=== PATIENT | male | born 1970 | race Caucasian/White ===

== ENCOUNTER 2020-05-02 14:39 | Emergency (ER) | payer OTHER ==
[2020-05-02 14:48] VITALS: BP 115/76
[2020-05-02] MEDS ORDERED: IBUPROFEN 600 MG TAB PO ONE (16:56)
--- NOTE | 2020-05-02 17:36 | XRay Report ---
LEFT ANKLE 4 VIEW(S) INDICATION / CLINICAL INFORMATION: fall, laceration ankle, foot/ankle pain/edema COMPARISON: None available. FINDINGS: BONES / JOINT(S): No acute fracture or subluxation. Ankle mortise is intact. No significant arthritis . SOFT TISSUES: Mild diffuse edema about the ankle. No evidence of foreign object. ADDITIONAL FINDINGS: None. Signer Name: Christian Ascencio MD Signed: 05/02/2020 5:32 PM Workstation Name: [id number]
--- NOTE | 2020-05-02 17:41 | XRay Report ---
LEFT FOOT 3 VIEW(S) INDICATION / CLINICAL INFORMATION: fall, laceration ankle, foot/ankle pain/edema COMPARISON: None available. FINDINGS: BONES / JOINT(S): No acute fracture or subluxation. No significant arthritis. Small os peroneum ossic le. SOFT TISSUES: Mild ankle edema. ADDITIONAL FINDINGS: None. Signer Name: Christian Ascencio MD Signed: 05/02/2020 5:36 PM Workstation Name: [id number]
[2020-05-02] MEDS ORDERED: LIDOCAINE (1%) 10 MG/1 ML VIAL 20 ML MDV INFILTRATI ONE (18:23)
--- NOTE | 2020-05-02 18:23 | Emergency Department Report ---
- General Chief Complaint: Wound/Laceration Stated Complaint: LACERATION TO LEG Time Seen by Provider: 05/02/20 16:10 Source: patient, family Mode of arrival: Ambulatory Limitations: Language Barrier - History of Present Illness Initial Comments: pts significant other used for Divehi interpretation which the patient gave permission Patient is a 49-year-old male who presents emergency room with complaints of a left ankle injury that occurred last night at 9 PM. Patient states that he was walking down the steps and slipped and fell and cut himself against some bricks. He has not been ambulatory since the incident secondary to pain. He has associated left ankle and foot pain and swelling. He denies ever injuring in the past. He states his last tetanus immunization was last year. He denies any numbness or weakness. He denies any current bleeding. He denies any past medical history or allergies to medications. - Related Data Previous Rx's Medication Instructions Recorded Last Taken Type HYDROcodone/APAP 5-325 [[place] 1 each PO Q6HR PRN #10 tablet 05/02/20 Unknown Rx 5/325] Ibuprofen [Motrin 600 MG tab] 600 mg PO Q8H PRN #20 tablet 05/02/20 Unknown Rx Sulfamethoxazole/Trimethoprim 1 each PO BID 7 Days #14 tablet 05/02/20 Unknown Rx [Bactrim DS TAB] Allergies Allergy/AdvReac Type Severity Reaction Status Date / Time No Known Allergies Allergy Unverified 05/02/20 15:06 ED Review of Systems ROS: Stated complaint: LACERATION TO LEG Other details as noted in HPI Comment: All other systems reviewed and negative ED Past Medical Hx - Past Medical History Previous Medical History?: No - Surgical History Past Surgical History?: No - Social History Smoking Status: Never Smoker Substance Use Type: None - Medications Home Medications: Home Medications Medication Instructions Recorded Confirmed Last Taken Type HYDROcodone/APAP 5-325 [[place] 1 each PO Q6HR PRN #10 tablet 05/02/20 Unknown Rx 5/325] Ibuprofen [Motrin 600 MG tab] 600 mg PO Q8H PRN #20 tablet 05/02/20 Unknown Rx Sulfamethoxazole/Trimethoprim 1 each PO BID 7 Days #14 tablet 05/02/20 Unknown Rx [Bactrim DS TAB] ED Physical Exam - General Limitations: Language Barrier General appearance: alert, in no apparent distress - Head Head exam: Present: atraumatic, normocephalic - Eye Eye exam: Present: normal appearance - ENT ENT exam: Present: mucous membranes moist - Extremities Exam Extremities exam: Present: other (3 cm curved laceration present to the medial surface of the left ankle/foot adjacent to the malleolus, there is edema and ttp to the medial surface of the left ankle and foot, there is ecchymosis present, FROM of the left knee, ankle, foot, and toes with discomfort upon flexion and internal and external rotation, neurovascularly intact, no muscle/tendon involvement, no foreign body, no active bleeding, no obvious deformity) - Neurological Exam Neurological exam: Present: alert, oriented X3 - Psychiatric Psychiatric exam: Present: normal affect, normal mood - Skin Skin exam: Present: warm, dry ED Course Vital Signs 05/02/20 05/02/20 14:46 17:00 Temperature 98.3 F Pulse Rate 89 Respiratory 20 18 Rate Blood Pressure 115/76 O2 Sat by Pulse 98 Oximetry - Laceration /Wound Repair Left Medial Ankle Wound Location: lower extremity (left medial ankle) Wound Length (cm): 3 (curved shape) Wound's Depth, Shape: superficial Wound Explored: clean Irrigated w/ Saline (ccs): 500 Betadine Prep?: Yes Anesthesia: 1% Lidocaine Volume Anesthetic (ccs): 10 Wound Debrided: extensive Wound Repaired With: sutures Suture Size/Type: 3:0, proline Number of Sutures: 1 (one running simple suture) Layer Closure?: No Sterile Dressing Applied?: Yes Progress: Wound irrigated with saline and thoroughly scrubbed with Betadine, no muscle or tendon involvement, no foreign body, 10 cc of 1% lidocaine without epinephrine used as anesthetic, 3-0 Prolene used for skin closure, one simple running suture placed, patient tolerated well, no complications, bleeding controlled, sterile dressing applied ED Medical Decision Making - Radiology Data Radiology results: report reviewed LEFT FOOT 3 VIEW(S) INDICATION / CLINICAL INFORMATION: fall, laceration ankle, foot/ankle pain/edema COMPARISON: None available. FINDINGS: BONES / JOINT(S): No acute fracture or subluxation. No significant arthritis. Small os peroneum ossicle. SOFT TISSUES: Mild ankle edema. ADDITIONAL FINDINGS: None. Signer Name: Norman Ascencio MD Signed: 05/02/2020 5:36 PM Workstation Name: [id number] Transcribed By: Dictated By: NORMAN ASCENCIO III Electronically Authenticated By: NORMAN ASCENCIO III Signed Date/Time: 05/02/201735 DD/ 31 TD/TT: LEFT ANKLE 4 VIEW(S) INDICATION / CLINICAL INFORMATION: fall, laceration ankle, foot/ankle pain/edema COMPARISON: None available. FINDINGS: BONES / JOINT(S): No acute fracture or subluxation. Ankle mortise is intact. No significant arthritis. SOFT TISSUES: Mild diffuse edema about the ankle. No evidence of foreign object. ADDITIONAL FINDINGS: None. Signer Name: Norman Ascencio MD Signed: 05/02/2020 5:32 PM Workstation Name: [id number] Transcribed By: Dictated By: NORMAN ASCENCIO III Electronically Authenticated By: NORMAN ASCENCIO III Signed Date/Time: 05/02/201731 DD/ 29 TD/TT: - Medical Decision Making pts significant other used for Divehi interpretation which the patient gave permission Patient is a 49-year-old male who presents emergency room with complaints of a left ankle injury that occurred last night at 9 PM. Patient states that he was walking down the steps and slipped and fell and cut himself against some bricks. He has not been ambulatory since the incident secondary to pain. He has associated left ankle and foot pain and swelling. He denies ever injuring in the past. He states his last tetanus immunization was last year. He denies any numbness or weakness. He denies any current bleeding. He denies any past medical history or allergies to medications. VSS. on exam: 3 cm curved laceration present to the medial surface of the left ankle/foot adjacent to the malleolus, there is edema and ttp to the medial surface of the left ankle and foot, there is ecchymosis present, FROM of the left knee, ankle, foot, and toes with discomfort upon flexion and internal and external rotation, neurovascularly intact, no muscle/tendon involvement, no foreign body, no active bleeding, no obvious deformity. XR left foot: BONES / JOINT(S): No acute fracture or subluxation. No significant arthritis. Small os peroneum ossicle. SOFT TISSUES: Mild ankle edema. ADDITIONAL FINDINGS: None. XR left ankle: BONES / JOINT(S): No acute fracture or subluxation. Ankle mortise is intact. No significant arthritis. SOFT TISSUES: Mild diffuse edema about the ankle. No evidence of foreign object. ADDITIONAL FINDINGS: None. laceration repaired per procedure note with one simple running suture which can easily be removed if infection does occur, advised pt that he has a high risk of infection secondary to delayed closure. pt will be referred to orthopedic to r/o ligamentous injury, discussed the importance of follow up. pt placed in sterile dressing, ankle stirrup splint and crutches and remained neurovascularly intact. pt given prescription for norco, ibuprofen, and bactrim. advised pt Please take medication as prescribed. Do not drive or operate heavy machinery while taking pain medication. Please keep area clean, dry, covered. May wash with soap and water and pat dry. Sutures need to be removed in the next 14 days. No hot tub, no pool, no soaking in water. Please follow-up with orthopedic doctor in the next 2 to 3 days. It is very important that you follow-up. Please do not bear weight until you have seen the orthopedic doctor. Return to emergency room immediately for any new or worsening symptoms or any signs of infection. - Differential Diagnosis strain, sprain, fx, dislocation, laceration, contusion, effusion Critical care attestation.: If time is entered above; I have spent that time in minutes in the direct care of this critically ill patient, excluding procedure time. ED Disposition Clinical Impression: Edema of left ankle Laceration of left ankle Qualifiers: Encounter type: initial encounter Qualified Code(s): S91.012A - Laceration without foreign body, left ankle, initial encounter Left ankle sprain Qualifiers: Encounter type: initial encounter Involved ligament of ankle: unspecified ligament Qualified Code(s): S93.402A - Sprain of unspecified ligament of left ankle, initial encounter Disposition: TO HOME OR SELFCARE Is pt being admited?: No Does the pt Need Aspirin: No Condition: Stable Instructions: Ankle Sprain (ED), Suture Care (ED), Crutch Instructions (ED), Laceration (ED), Ankle Stirrup Splint (ED) Additional Instructions: Please take medication as prescribed. Do not drive or operate heavy machinery while taking pain medication. Please keep area clean, dry, covered. May wash with soap and water and pat dry. Sutures need to be removed in the next 14 days. No hot tub, no pool, no soaking in water. Please follow-up with orthopedic doctor in the next 2 to 3 days. It is very important that you follow-up. Please do not bear weight until you have seen the orthopedic doctor. Return to emergency room immediately for any new or worsening symptoms or any signs of infection. [place] los medicamentos segn lo prescrito. No conduzca ni maneje maquinaria pesada mientras est tomando analgsicos. Mantenga el vianney limpia, seca y cubierta. Puede lavarse con agua y jabn y secar. Las suturas deben retirarse en los prximos 14 quezada. Sin baera de hidromasaje, sin piscina, sin remojo en agua. Carlita un seguimiento con el mdico ortopdico en los prximos 2 a 3 quezada. Es muy importante que carlita un seguimiento. No cargue peso hasta que haya visto al mdico ortopdico. Regrese a la isa de emergencias de inmediato ante cualquier sntoma nuevo o que empeore o cualquier signo de infeccin. Prescriptions: Sulfamethoxazole/Trimethoprim [Bactrim DS TAB] 1 each PO BID 7 Days #14 tablet Ibuprofen [Motrin 600 MG tab] 600 mg PO Q8H PRN #20 tablet PRN Reason: Pain, Moderate (4-6) HYDROcodone/APAP 5-325 [[place] 5/325] 1 each PO Q6HR PRN #10 tablet PRN Reason: Pain , Severe (7-10) Referrals: NORMAN GABRIEL MD [Staff Physician] - 2-3 Days (orthopedic ) [facility] [Provider Group] - 2-3 Days Time of Disposition: 18:59 Print Language: BULGARIAN
== END 2020-05-02 19:30 | disposition home or self-care (01) ==
LOC: ED 14:39
DX: S91.012A Laceration without foreign body, left ankle, initial encounter (principal); S93.402A Sprain of unspecified ligament of left ankle, initial encounter; R60.9 Edema, unspecified; Z79.1 Long term (current) use of non-steroidal anti-inflammatories (NSAID); Z79.899 Other long term (current) drug therapy; W01.0XXA Fall on same level from slipping, tripping and stumbling without subsequent striking against object, initial encounter; Y93.89 Activity, other specified; Y92.89 Other specified places as the place of occurrence of the external cause; Y99.8 Other external cause status

== ENCOUNTER 2020-05-17 09:57 | Emergency (ER) | payer OTHER ==
[2020-05-17 10:09] VITALS: BP 125/73
--- NOTE | 2020-05-17 10:36 | Emergency Department Report ---
Suture/Staple Removal - HPI Chief Complaint: Laceration/Recheck/Suture Stated Complaint: REMOMVE STITCHES Time Seen by Provider: 05/17/20 10:30 ED Review of Systems ROS: Stated complaint: REMOMVE STITCHES Other details as noted in HPI Constitutional: no symptoms reported. denies: chills, fever Respiratory: denies: cough Cardiovascular: denies: chest pain, syncope ED Past Medical Hx - Past Medical History Previous Medical History?: No - Surgical History Past Surgical History?: No - Social History Smoking Status: Never Smoker Substance Use Type: Alcohol - Medications Home Medications: Home Medications Medication Instructions Recorded Confirmed Last Taken Type HYDROcodone/APAP 5-325 [[place] 1 each PO Q6HR PRN #10 tablet 05/02/20 Unknown Rx 5/325] Ibuprofen [Motrin 600 MG tab] 600 mg PO Q8H PRN #20 tablet 05/02/20 Unknown Rx Sulfamethoxazole/Trimethoprim 1 each PO BID 7 Days #14 tablet 05/02/20 Unknown Rx [Bactrim DS TAB] Suture Removal Exam - Exam General: Vital signs noted. No distress. Alert and acting appropriately. Wound: Yes Pathologic Erythema, Yes Tenderness, No Drainage, No Pus, No Wound Dehiscence Other Systems: All other systems reviewed and are unremarkable. ED Course Vital Signs 05/17/20 10:05 Temperature 98.1 F Pulse Rate 83 Respiratory 18 Rate Blood Pressure 125/73 O2 Sat by Pulse 99 Oximetry ED Recheck MDM - Core Measures AMI Core Measures Followed: No - Differential Diagnosis Suture/Staple Removal - Medical Decision Making Sutures removed with ease. No signs and symptoms of infection . Keep clean and dry Critical Care Time: No Critical care attestation.: If time is entered above; I have spent that time in minutes in the direct care of this critically ill patient, excluding procedure time. ED Disposition Clinical Impression: Sutured skin wound, Visit for suture removal Disposition: DC-01 TO HOME OR SELFCARE Is pt being admited?: No Does the pt Need Aspirin: No Condition: Stable Instructions: Suture Removal (ED) Time of Disposition: 10:32
== END 2020-05-17 11:00 | disposition home or self-care (01) ==
LOC: ED 09:57
DX: Z48.02 Encounter for removal of sutures (principal); Z53.21 Procedure and treatment not carried out due to patient leaving prior to being seen by health care provider